=== PATIENT | female | born 1955 | race African-American/Black ===

== ENCOUNTER 2024-03-12 03:51 | Day surgery (SDC) | payer OTHER, BC ==
[2024-03-08 10:49] VITALS: BMI 17.6
[2024-03-12] MEDS ORDERED: BUPIVACAINE HCL/PF 0.75% 10 ML VIAL ONE (07:19)
[2024-03-12] MEDS ORDERED: LIDOCAINE HCL/PF 1% SDV 5ML VIAL ONE (07:19)
[2024-03-12] MEDS: LIDOCAINE HCL 1%, 10 MG/ML (20ML VIAL) INF ONE ×2 (08:24)
[2024-03-12] MEDS: BUPIVACAINE HCL/PF 0.75% 10 ML VIAL NR ONE ×4 (08:28→08:29)
[2024-03-12] MEDS ORDERED: ACETAMINOPHEN 500 MG TABLET (FP) PO PRN (08:40)
[2024-03-12 08:43] VITALS: BP 140/80; PULSE 53; RESP 20; TEMP 96.9
== END 2024-03-12 09:00 | disposition home or self-care (01) ==
LOC: JASU-SURG 03:51
PROVIDERS: ATTEND Pain Medicine Pain Medicine
PROC: 3E0T33Z Introduction of Anti-inflammatory into Peripheral Nerves and Plexi, Percutaneous Approach (ICD-10-PCS; 2024-03-12)
PROC: 3E0T3BZ Introduction of Anesthetic Agent into Peripheral Nerves and Plexi, Percutaneous Approach (ICD-10-PCS; principal; 2024-03-12 08:00)
DX: M47.816 Spondylosis without myelopathy or radiculopathy, lumbar region (principal)
CPT/HCPCS: 76000-TC-FY